=== PATIENT | female | born 1985 | race Caucasian/White ===

== ENCOUNTER 2018-09-09 07:12 | Emergency (ER) | payer OTHER ==
[2018-09-09 07:22] VITALS: BP 121/86
[2018-09-09 07:32] LABS: BILIRUBIN,URINE NEGATIVE (NEGATIVE); GLUCOSE, URINE (UA) NEGATIVE (NEGATIVE); KETONES,URINE (UA) NEGATIVE (NEGATIVE); LEUKOCYTE ESTERASE, URINE SMALL (NEGATIVE); NITRITE,URINE NEGATIVE (NEGATIVE); OCCULT BLOOD,URINE MODERATE (NEGATIVE); PH,URINE 6.5 PH (5.0-7.5); PROTEIN,URINE NEGATIVE (NEGATIVE); UROBILINOGEN,URINE 0.2 (NORMAL) E.U./dL (NORMAL)
[2018-09-09 07:33] LABS: CLARITY,URINE CLEAR (CLEAR)
--- NOTE | 2018-09-09 07:33 | ED Physician Documentation ---
PD HPI FEMALE - Stated complaint Stated Complaint: FEMALE - Chief complaint Chief Complaint: UTI - History obtained from History obtained from: Patient - History of Present Illness Timing - onset: Enter time (12:00 AM), Today Timing - details: Gradual onset Severity Comments: moderate Associated symptoms: Abdominal pain (Suprapubic pain), Dysuria, Urinary frequency. No: Fever, Chest/shoulder pain, Pelvic pain, Vaginal pain, Vaginal bleeding, Vaginal discharge, Genital sore/lesion, Hematuria Similar symptoms before: Other (The patient has a history of recurrent urinary tract infections) Recently seen: Not recently seen Review of Systems Constitutional: reports: Chills. denies: Fever Eyes: denies: Photophobia Ears: denies: Ear pain Nose: denies: Foreign Body Throat: denies: Sore throat Cardiac: denies: Chest pain / pressure Respiratory: denies: Dyspnea GI: reports: Abdominal Pain. denies: Nausea : reports: Dysuria, Frequency Skin: denies: Rash Musculoskeletal: denies: Neck pain Neurologic: denies: Generalized weakness Immunocompromised: denies: Chemotherapy PD PAST MEDICAL HISTORY - Past Medical History Past Medical History: Yes Cardiovascular: Deep vein thrombosis Respiratory: Asthma - Present Medications Home Medications: Ambulatory Orders Medication Instructions Recorded Confirmed Albuterol Sulfate [Proair Hfa 09/09/18 Inhaler] Cephalexin [Keflex] 500 mg PO BID #14 capsule 09/09/18 Cranberry 500 mg PO 09/09/18 09/09/18 Fexofenadine HCl [[place] Allergy] 180 mg PO 09/09/18 Warfarin [Coumadin] 9 mg PO DAILY 09/09/18 09/09/18 - Allergies Allergies/Adverse Reactions: Allergies Allergy/AdvReac Type Severity Reaction Status Date / Time No Known Drug Allergies Allergy Verified 09/09/18 07:19 - Social History Does the pt smoke?: No Smoking Status: Never smoker PD ED PE NORMAL - General General: Alert and oriented X 3, No acute distress - HEENT HEENT: Atraumatic, PERRL, EOMI, Ears normal - Cardiac Cardiac: RRR, Strong equal pulses - Respiratory Respiratory: No respiratory distress, Clear bilaterally - Abdomen Abdomen: Soft, Non tender, Non distended - Derm Derm: Normal color - Extremities Extremities: No deformity - Neuro Neuro: Alert and oriented X 3, Normal speech - Psych Psych: Normal affect Results - Vitals Vitals: Vital Signs - 24 hr 09/09/18 09/09/18 07:20 07:29 Temperature 36.3 C L Heart Rate 93 Respiratory 16 Rate Blood Pressure 121/86 H O2 Saturation 100 Oxygen O2 Source Room air - Labs Labs: Laboratory Tests 09/09/18 09/09/18 07:20 07:50 PT 22.2 H INR 2.0 H Urine Color YELLOW Urine Clarity CLEAR Urine pH 6.5 Ur Specific [place] 1.010 Urine Protein NEGATIVE Urine Glucose (UA) NEGATIVE Urine Ketones NEGATIVE Urine Occult Blood MODERATE H Urine Nitrite NEGATIVE Urine Bilirubin NEGATIVE Urine Urobilinogen 0.2 (NORMAL) Ur Leukocyte Esterase SMALL H Urine RBC 6-10 H Urine WBC 6-10 H Ur Squamous Epith Cells FEW Squamous Urine Bacteria Few Ur Microscopic Review INDICATED Urine Culture Comments INDICATED Urine HCG, Qual NEGATIVE PD MEDICAL DECISION MAKING - ED course ED course: The patient's history is consistent with an acute urinary tract infection and the patient will be placed on a course of Keflex. The patient is on Coumadin and I recommended that she have her INR rechecked in 3 days to make sure that her INR has not become supratherapeutic. The patient understands and agrees. I discussed warning signs and recommended returning to the emergency department immediately for any worsening or any concerns. Departure - Departure Disposition: 01 Home, Self Care Clinical Impression: Acute cystitis Qualifiers: Hematuria presence: with hematuria Qualified Code(s): N30.01 - Acute cystitis with hematuria Instructions: ED UTI Cystitis Female Follow-Up: KAIDEN WARREN MD [Primary Care Provider] - Within 3 Days (Please ask your primary careTo recheck your INR in 3 days since antibiotics may interact with Coumadin and because your INR to be higher than it should be.) Prescriptions: Cephalexin [Keflex] 500 mg PO BID #14 capsule Comments: Please return to the emergency department for worsening symptoms or any concerns
[2018-09-09 07:34] LABS: HCG UR QUAL NEGATIVE
[2018-09-09] MEDS ORDERED: PHENAZOPYRIDINE 100 MG TABLET PO STA (07:37)
[2018-09-09] MEDS ORDERED: cephALEXin 250 MG CAPSULE PO STA (07:37)
[2018-09-09 08:10] LABS: BACTERIA,URINE Few /HPF (None Seen); SQUAMOUS EPITHELIAL CELL,UR FEW Squamous (<= Few)
[2018-09-09 08:10] LABS: PT - PROTHROMBIN TIME 22.2 secs (9.9-12.6)
== END 2018-09-09 08:20 | disposition home or self-care (01) ==
LOC: ED 07:12
DX: N30.01 Acute cystitis with hematuria (principal); Z86.718 Personal history of other venous thrombosis and embolism; Z79.01 Long term (current) use of anticoagulants
CPT/HCPCS: 81001; 81025; 85610; 87086; 99283; A9270; 81003